=== PATIENT | female | born 1965 | race Caucasian/White ===

== ENCOUNTER 2019-01-13 14:54 | Emergency (ER) | payer MEDICAID ==
[~2019-01-13] VITALS: Ht 157.5 cm; Wt 83.5 kg
[~2019-01-13 14:54] MED LIST: ACETAMINOPHEN-1 EAC1 PO; IBUPROFEN 600600 M1 PO; LYRICA 50 MG50 MG PO; NAPROSYN500 MG PO; PROZAC10 MG PO; ROBAXIN500 MG PO; XANAX 0.5 MG0.5 MG PO
[2019-01-13] MEDS ORDERED: TOPAMAX50 MG PO (15:05)
[2019-01-13] MEDS ORDERED: ROPINIROLE HCL2 MG PO (15:06)
[2019-01-13] MEDS ORDERED: QUETIAPINE FUM100 MG PO (15:06)
[2019-01-13] MEDS ORDERED: SPIRIVA INH (15:07)
[2019-01-13] MEDS ORDERED: BUSPIRONE HCL10 MG PO (15:07)
[2019-01-13] MEDS ORDERED: PROPRANOLOL 1010 MG PO (15:07)
[2019-01-13] MEDS ORDERED: PROAIR HFA8.5 GM ×2 (15:08→15:13)
[2019-01-13] MEDS ORDERED: NEXIUM40 MG PO (15:08)
[2019-01-13] MEDS ORDERED: ALDACTONE100 MG PO (15:13)
[2019-01-13 15:35] LABS: URINE BILIRUBIN NEGATIVE (Negative); URINE BLOOD NEGATIVE (Negative); URINE CLARITY CLEAR; URINE COLOR YELLOW; URINE GLUCOSE-RANDOM NEGATIVE (Negative); URINE KETONES NEGATIVE (Negative); URINE LEUKOCYTES-REFLEX NEGATIVE (Negative); URINE NITRITE-REFLEX NEGATIVE (Negative); URINE PROTEIN NEGATIVE (Negative); URINE UROBILINOGEN 0.2 E.U./dl (0.2-1.0)
[2019-01-13] MEDS ORDERED: ACYCLOVIR 400400 MG PO (15:44)
[2019-01-13 15:45] VITALS: BP 128/90
== END 2019-01-13 15:55 | disposition home or self-care (01) ==
LOC: M.ERS 14:54
PROVIDERS: Nurse Practitioner Family
DX: B00.1 Herpesviral vesicular dermatitis (principal); R30.0 Dysuria; F41.9 Anxiety disorder, unspecified; F32.9 Major depressive disorder, single episode, unspecified; M79.7 Fibromyalgia; Z91.040 Latex allergy status